=== PATIENT | male | born 1955 | race Caucasian/White ===

== ENCOUNTER 2019-05-28 15:34 | Outpatient (CLI) | payer MEDICARE, SELFPAY ==
--- NOTE | ~2019-05-28 | XR_ITS ---
EXAMINATION: XR thoracic spine 2V DATE: 05/28/2019 16:43 INDICATION: Thoracic back pain. TECHNIQUE: 3 views of thoracic spine were obtained. COMPARISON: Thoracic spine radiographs 06/01/2014 FINDINGS: There is 13 degrees levoscoliosis of upper thoracic spine. There is 7 degrees dextrocurvatu re of lower thoracic spine. Vertebral body heights and intervertebral disc heights are normal. There are endplate osteophytes at many levels. There is an intrathecal catheter with tip at T10. IMPRESSION: 1. Mild thoracic spondylosis. 2. Scoliosis. Reviewed, dictated and finalized at location A.
--- NOTE | ~2019-05-28 | MR_ITS ---
EXAMINATION: MR lumbar spine wo con DATE: 05/28/2019 16:33 INDICATION: Chronic low back pain. TECHNIQUE: Magnetic resonance imaging (MRI) of the lumbar spine was performed without intravenous con trast. Sequences included sagittal T2-weighted FSE, sagittal T2-weighted FS FSE, sagittal T1-weighted FSE, and axial T2-weighted FSE. COMPARISON: Lumbar spine MRI 11/20/2013, radiographs 06/01/2014 FINDINGS: Bone alignment is normal. There is patchy fatty replacement of the bone marrow. There is mo derately decreased disc height at L4-L5 with endplate remodeling. The distal spinal cord signal inten sity is normal. The conus medullaris is at L1. The following disc levels are specifically discussed: L1-L2: The disc is mildly bulging. There is mild bilateral facet joint osteoarthritis. There is no ne ural foraminal stenosis. There is mild central canal stenosis. L2-L3: The disc is bulging. There is severe bilateral facet joint osteoarthritis. There is mild bilat eral neural foraminal stenosis. There is mild central canal stenosis. L3-L4: The disc is mildly bulging. There is moderate and severe left facet joint osteoarthritis. Ther e is mild bilateral neural foraminal stenosis. There is mild central canal stenosis. L4-L5: The disc is bulging. There is moderate bilateral facet joint osteoarthritis. There is mild dana ateral neural foraminal stenosis. There is no central canal stenosis. There are changes of posterior decompression. L5-S1: The disc does not extend beyond the endplate margin. There is severe bilateral facet joint ost eoarthritis. There is mild bilateral neural foraminal stenosis. There is no central canal stenosis. IMPRESSION: 1. Moderate lumbar spondylosis, stable from 11/20/2013. Reviewed, dictated and finalized at location A.
== END 2019-05-28 15:35 ==
LOC: MICIMG 15:35
PROVIDERS: Visit Provider Nurse Practitioner Family
DX: M47.26 Other spondylosis with radiculopathy, lumbar region (principal); M47.894 Other spondylosis, thoracic region; M41.9 Scoliosis, unspecified
CPT/HCPCS: 72070; 72148

== ENCOUNTER → 2020-06-12 13:57 | Outpatient (CLI) | payer MEDICARE, SELFPAY ==
--- NOTE | ~2020-06-12 | XR_ITS ---
EXAMINATION: XR lumbar spine min 4V EXAM DATE: 06/12/2020 14:36 INDICATION: Lumbago TECHNIQUE: Lumber spine frontal, lateral, lateral L5-S1 projections for interpretation. Additional l ateral flexion and lateral extension projections obtained. Comparison is made to prior examination fr om 06/01/2014. FINDINGS: There is pain pump with catheter entering at the L3-4 level. Moderate disc disease L4-5, m ild to moderate at L5-S1. Overall moderate lumbar facet arthropathy. Lumbar vertebral body heights ap pear relatively well-maintained. The vertebral bodies are aligned in the AP dimension on the lateral projections. Sacrum, sacroiliac joints, sacral arcuate lines are intact. 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 Slight interval progression spondylosis compared to 2015. IMPRESSION: 1. Moderate spondylosis. Reviewed, dictated and finalized at location A. IMPRESSION: 1. Moderate spondylosis.
== END ==
PROVIDERS: PCP Internal Medicine; Visit Provider Nurse Practitioner Family
DX: M47.896 Other spondylosis, lumbar region (principal)
CPT/HCPCS: 72110

== ENCOUNTER 2025-01-09 13:34 | Outpatient (CLI) | payer MEDICARE, SELFPAY ==
--- NOTE | ~2025-01-09 | XR_ITS ---
EXAMINATION: XR shoulder RT min 2V, 01/09/2025 14:10 [employer] DRIVER HISTORY: RT SHOULDER PAIN x1.5 MONTHS COMPARISON: No comparisons available. Findings: No acute fracture or malalignment. No significant degenerative changes. Soft tissues unremarkable. Impression: No acute fracture or malalignment. Reviewed, dictated and finalized at location P. DRIVER Impression: No acute fracture or malalignment.
== END 2025-01-09 13:35 | disposition home or self-care (01) ==
LOC: MICIMG 13:35
PROVIDERS: PCP Internal Medicine; Visit Provider Nurse Practitioner Family
DX: M25.511 Pain in right shoulder (principal)
CPT/HCPCS: 73030